=== PATIENT | female | born 1990 | race Caucasian/White ===

== ENCOUNTER 2022-08-04 09:07 | Emergency (ER) | payer BC ==
[~2022-08-04] VITALS: Ht 152.4 cm; Wt 64.0 kg
[2022-08-04] MEDS ORDERED: FLOVENT HFA12 G1 INH (09:26)
[2022-08-04] MEDS ORDERED: VENTOLIN HFA18 GM INH (09:27)
--- NOTE | 2022-08-04 21:01 | EKG ---
[facility] [address] [place] [address] Signed Sinus bradycardia Otherwise normal ECG No previous ECGs available Confirmed by Bennie Langley MD () on 08/04/2022 9:00:57 PM Electronically Signed By: BENNIE LANGLEY MD 08/04/222100 PATIENT NAME: MIRACLE HARRELL Electrocardiogram DATE OF : 88 PHYSICIAN: BENNIE LANGLEY MD REPORT #: [id number] REPORT IS CONFIDENTIAL AND NOT TO BE RELEASED WITHOUT AUTHORIZATION
== END 2022-08-04 12:40 | disposition home or self-care (01) ==
LOC: ED 09:07
DX: R55 Syncope and collapse (principal); J45.909 Unspecified asthma, uncomplicated; Z79.899 Other long term (current) drug therapy
CPT/HCPCS: 36415; 71045; 80053; 84484; 85025; 93005; 93010; 99284-25; J7030